=== PATIENT | female | born 1975 | race Caucasian/White ===

== ENCOUNTER 2020-01-03 14:55 | Outpatient (CLI) | payer BC, SELFPAY ==
--- NOTE | 2020-01-03 | MR_ITS ---
WS: [id number] MRI RIGHT KNEE NONCONTRAST TECHNIQUE: Axial PD, coronal PD fat sat, coronal PD, sagittal PD, and sagittal PD fat-sat images obta ined. CLINICAL INFORMATION: RIGHT ANTERIOR KNEE PAIN COMPARISON: None. FINDINGS: Distal quadriceps and patella tendons are intact. Moderate suprapatellar effusion. Hypertrophic araujo la. ACL and PCL are intact. Soft tissue edema. Chronic thinning of the medial and lateral meniscus. N o acute appearing meniscal tears. Medial and lateral collateral ligaments are intact. Small amount of edema along the superficial fiber s medial collateral ligament consistent with grade one injury. Subchondral cystic change along the ti bial plateau. Moderate chondromalacia involving the medial and lateral joint compartments with joint space narrowing. Advanced chondromalacia patella. No subchondral edema. Normal popliteal fossa. Hyper trophic changes along the joint line. MR/MR knee RT wo con* [id number] IMPRESSION: 1. Moderate suprapatellar effusion. 2. Grade 1 injury MCL complex. MCL and LCL are intact. 3. Anterior and posterior cruciate ligaments are intact. 4. No acute appearing meniscal tears. Chronic thinning of the medial and later al meniscus. 5. Moderate chondromalacia involving the medial and lateral joint compartments with joint space narrowing. Hypertrophic changes along the joint line. 6. Advanced chondromalacia patella.
== END 2020-01-03 14:56 | disposition home or self-care (01) ==
LOC: RADSHAW 15:01
PROVIDERS: Visit Provider Nurse Practitioner Family
DX: M25.461 Effusion, right knee (principal); M22.41 Chondromalacia patellae, right knee
CPT/HCPCS: 73721

== ENCOUNTER → 2022-05-09 08:37 | Outpatient (BNVA) | payer OTHER, SELFPAY | PROVIDERS: Visit Provider Orthopaedic Surgery | DX: M17.12 Unilateral primary osteoarthritis, left knee (principal) | CPT/HCPCS: 73560; 73565 ==

== ENCOUNTER → 2022-07-01 13:11 | Outpatient (BNVA) | payer OTHER, SELFPAY | PROVIDERS: Visit Provider Orthopaedic Surgery | DX: S89.92XA Unspecified injury of left lower leg, initial encounter (principal); S89.91XA Unspecified injury of right lower leg, initial encounter; W01.0XXA Fall on same level from slipping, tripping and stumbling without subsequent striking against object, initial encounter; M25.461 Effusion, right knee; M25.462 Effusion, left knee | CPT/HCPCS: 73560; 73565 ==